=== PATIENT | male | born 1985 | race Two or more races ===

== ENCOUNTER 2017-06-25 11:07 | Emergency (ER) | payer OTHER ==
[2017-06-25 11:14] VITALS: RESP 20
--- NOTE | 2017-06-25 11:39 | ED ---
General Adult HPI - General Chief complaint: Back Pain/Injury Stated complaint: Back pain Time Seen by Provider: 06/25/17 11:28 Source: patient, RN notes reviewed Mode of arrival: ambulatory Limitations: no limitations - History of Present Illness Initial comments: Patient 31-year-old male presented to the emergency room today with chief complaint of a bump that he noticed 2 his mid back. He doesn't that he had a fall from roof back at the end of March 2017. States he had surgery on his neck and also his back. He states this was done at [facility]. He states he currently moved to the area and does not have a ride down to [facility]. Woke up today felt some increased pain and stiffness to the back. States that he noticed a bump left side of the mid spine. States he talked to the spinal specialist and was advised to come to the emergency room to have it checked. Patient denies any other complaints or symptoms. Patient denies any recent fever, chills, shortness of breath, chest pain, abdominal pain, nausea or vomiting, constipation or diarrhea, headaches or visual changes, or any other complaints. - Related Data Home Medications Medication Instructions Recorded Confirmed DULoxetine HCL [Cymbalta] 60 mg PO DAILY 06/25/17 06/25/17 Gabapentin 800 mg PO TID 06/25/17 06/25/17 Methocarbamol [Robaxin-750] 750 mg PO Q6H 06/25/17 06/25/17 Sennosides/Docusate Sodium [Dok 1 tab PO BID PRN 06/25/17 06/25/17 Plus Tablet] oxyCODONE-APAP 10-325MG [Percocet 1 - 2 tab PO Q4H PRN 06/25/17 06/25/17 10-325 mg] Allergies Allergy/AdvReac Type Severity Reaction Status Date / Time amoxicillin Allergy Unknown Verified 06/25/17 11:31 NSAIDS (Non-Steroidal Allergy Unknown Verified 06/25/17 11:31 Anti-Inflamma SUSHI Allergy Swelling Uncoded 06/25/17 11:31 Review of Systems ROS Statement: Those systems with pertinent positive or pertinent negative responses have been documented in the HPI. ROS Other: All systems not noted in ROS Statement are negative. Past Medical History Additional Past Medical History / Comment(s): back and neck injury History of Any Multi-Drug Resistant Organisms: None Reported Past Surgical History: Back Surgery Additional Past Surgical History / Comment(s): neck surgery Past Psychological History: No Psychological Hx Reported Smoking Status: Current every day smoker Past Alcohol Use History: None Reported Past Drug Use History: None Reported General Exam - General Exam Comments Initial Comments: General: The patient is awake and alert, in no distress, and does not appear acutely ill. Eye: Pupils are equal, round and reactive to light, extra-ocular movements are intact. No nystagmus. There is normal conjunctiva bilaterally. No signs of icterus. Ears, nose, mouth and throat: There are moist mucous membranes and no oral lesions. Neck: The neck is supple, there is no tenderness or JVD. Cardiovascular: There is a regular rate and rhythm. No murmur, rub or gallop is appreciated. Respiratory: Lungs are clear to auscultation, respirations are non-labored, breath sounds are equal. No wheezes, stridor, rales, or rhonchi. Musculoskeletal: Patient does have 2 surgical incisions midthoracic spine to both left and right side. Just below the left surgical incision there is a area that is raised. There is a feels muscular. It is not red. Some appear to have any increased tenderness. No drainage or discharge. Strength 5/5. Sensation intact. Pulses equal bilaterally 2+. Neurological: A&O x 3. CN II-XII intact, There are no obvious motor or sensory deficits. Coordination appears grossly intact. Speech is normal. Skin: Skin is warm and dry and no rashes or lesions are noted. Psychiatric: Cooperative, appropriate mood & affect, normal judgment. Limitations: no limitations Course Vital Signs 06/25/17 11:11 Temperature 98.1 F Pulse Rate 95 Respiratory 20 Rate Blood Pressure 132/89 O2 Sat by Pulse 98 Oximetry Medical Decision Making - Medical Decision Making Case discussed in detail with attending physician Dr. Chavira. Patient's x-rays have been reviewed shows no acute abnormality. Shows stable hardware. Patient vitals are stable. No fever. Patient does have no signs of infection. No redness. No increased tenderness to this area to the left side of his back. Patient is advised to follow-up with his surgeon. Advised to return if there is any fever, increase or worsening symptoms. Disposition Clinical Impression: Back pain Disposition: HOME SELF-CARE Additional Instructions: Please follow-up with surgeon in the next 2 days. Please return to emergency room if the symptoms increase or worsen or for any other concerns. Referrals: None,Stated [Primary Care Provider] - 1-2 days Time of Disposition: 12:20
--- NOTE | 2017-06-25 12:24 | XR ---
EXAMINATION TYPE: XR thoracic spine complete DATE OF EXAM: 06/25/2017 COMPARISON: NONE HISTORY: 31-year-old male with upper back pain and swelling at surgical site. C-spine surgery in and thoracic spine surgery in April after fall. TECHNIQUE: 4 views FINDINGS: No priors are available for comparison purposes. C3-C6 ACDF. There is T9-T10 posterior fusion change. There may be minimal vertebral body height loss at T9. Corre late as to the reason for patient's surgery. Alignment is maintained. The remaining vertebral body heights are preserved. IMPRESSION: 1. No priors available for comparison purposes. 2. C3-C6 ACDF hardware appears intact. 3. T9-T10 posterior thoracic fusion hardware. There may be minimal height loss of the T9 vertebral rodney dy. Correlate as to the reason for patient's thoracic fusion. 4. No malalignment.
[2017-06-25 12:48] VITALS: BP 130/82; PULSE 85; TEMP 98.2
== END 2017-06-25 12:40 | disposition home or self-care (01) ==
LOC: EC 11:07
DX: M54.9 Dorsalgia, unspecified (principal); F17.200 Nicotine dependence, unspecified, uncomplicated; Z79.899 Other long term (current) drug therapy; Z88.0 Allergy status to penicillin; Z88.6 Allergy status to analgesic agent; Z91.018 Allergy to other foods
CPT/HCPCS: 72072; 99283

== ENCOUNTER 2017-09-24 13:04 | Emergency (ER) | payer OTHER ==
[2017-09-24 13:16] VITALS: RESP 18
[2017-09-24] MEDS ORDERED: HYDROcodone/APAP 5-325MG 1 EACH TAB PO STA (13:53)
--- NOTE | 2017-09-24 14:50 | XR ---
EXAMINATION TYPE: XR lumbar spine 2 or 3V DATE OF EXAM: 09/24/2017 CLINICAL HISTORY: Fall and back pain TECHNIQUE: Frontal and lateral images of the lumbar spine are obtained. COMPARISON: None FINDINGS: There are 5 lumbar type vertebral bodies identified. The lumbar spine shows satisfactory alignment without evidence of acute fracture or dislocation. Vertebral body heights and disk space he ights are within normal limits. Surgical fusion of the thoracic spine is partially visualized. The o verlying soft tissue appears unremarkable. Minimal degenerative disc disease is seen at L5-S1 with fa cet arthropathy. IMPRESSION: No acute fracture or or malalignment is seen in the lumbar spine.
--- NOTE | 2017-09-24 14:54 | XR ---
Thoracic spine HISTORY: Trauma and pain 3 views of the thoracic spine correlated to prior exam 06/25/2017 There is no interval change. Postop changes again noted in the lower thoracic spine status post poste rior fusion T9-T10, cervical spine status post anterior cervical fusion and discectomy C3-C6. There m ay be a spinal curvature. Thoracic vertebral bodies show stable height, alignment, and bone mineraliz ation. Disc spaces are stable. IMPRESSION: Postop changes. There may be a mild spinal curvature. No acute fracture or subluxation.
--- NOTE | 2017-09-24 14:54 | ED ---
General Adult HPI - General Chief complaint: Back Pain/Injury Stated complaint: BACK PAIN FROM FALL, Hx Sx Time Seen by Provider: 09/24/17 13:38 Source: patient, RN notes reviewed Mode of arrival: ambulatory Limitations: no limitations - History of Present Illness Initial comments: 32-year-old male presents to the emergency department for a chief complaint of back pain 3 days. Patient states he slid down the stairs a few days ago and has been in pain since. Patient had surgery on his back about 7 months ago. He had fractures in the thoracic and cervical spine at that time. Patient has no feeling in bilateral lower extremities and has mild difficulty walking since the surgery. This has been consistent since the surgery. Patient denies any changes in bladder or bowel changes since the surgery and straight caths at home , which has been consistent. Patient denies IVDA. Patient did not hit his head. Patient has been taking Neurontin and Robaxin at home for pain. Patient is ALLERGIC to NSAIDs. Patient has no other complaints at this time including shortness of breath, chest pain, abdominal pain, nausea or vomiting, headache, or visual changes. - Related Data Home Medications Medication Instructions Recorded Confirmed DULoxetine HCL [Cymbalta] 60 mg PO DAILY 06/25/17 06/25/17 Gabapentin 800 mg PO TID 06/25/17 06/25/17 Methocarbamol [Robaxin-750] 750 mg PO Q6H 06/25/17 06/25/17 Sennosides/Docusate Sodium [Dok 1 tab PO BID PRN 06/25/17 06/25/17 Plus Tablet] oxyCODONE-APAP 10-325MG [Percocet 1 - 2 tab PO Q4H PRN 06/25/17 06/25/17 10-325 mg] Allergies Allergy/AdvReac Type Severity Reaction Status Date / Time amoxicillin Allergy Unknown Verified 09/24/17 13:16 NSAIDS (Non-Steroidal Allergy Unknown Verified 09/24/17 13:16 Anti-Inflamma SUSHI Allergy Swelling Uncoded 09/24/17 13:16 Review of Systems ROS Statement: Those systems with pertinent positive or pertinent negative responses have been documented in the HPI. ROS Other: All systems not noted in ROS Statement are negative. Past Medical History Past Medical History: No Reported History Additional Past Medical History / Comment(s): back and neck injury History of Any Multi-Drug Resistant Organisms: None Reported Past Surgical History: Back Surgery Additional Past Surgical History / Comment(s): neck surgery Past Psychological History: Bipolar Smoking Status: Current every day smoker Past Alcohol Use History: None Reported Past Drug Use History: None Reported General Exam Limitations: no limitations General appearance: alert, in no apparent distress Head exam: Present: atraumatic, normocephalic, normal inspection Eye exam: Present: normal appearance, PERRL, EOMI. Absent: scleral icterus, conjunctival injection, periorbital swelling ENT exam: Present: normal exam, normal oropharynx, mucous membranes moist, TM's normal bilaterally, normal external ear exam Neck exam: Present: normal inspection, full ROM. Absent: tenderness, meningismus, lymphadenopathy Respiratory exam: Present: normal lung sounds bilaterally. Absent: respiratory distress, wheezes, rales, rhonchi, stridor Cardiovascular Exam: Present: regular rate, normal rhythm, normal heart sounds. Absent: systolic murmur, diastolic murmur, rubs, gallop, clicks Extremities exam: Present: normal capillary refill (cap refill < 2 seconds and pedal pulse 2+) Back exam: Present: paraspinal tenderness (Mild thoracic paraspinal tenderness) , vertebral tenderness (Thoracic and lumbar spine tenderness. No cervical spine tenderness.). Absent: full ROM (Patient has about 30 flexion of the low back. 10 extension. Patient is able to twist.), CVA tenderness (R), CVA tenderness (L) Neurological exam: Present: alert, oriented X3, CN II-XII intact, normal gait. Absent: motor sensory deficit Course Vital Signs 09/24/17 13:13 Temperature 98.8 F Pulse Rate 113 H Respiratory 18 Rate Blood Pressure 120/84 O2 Sat by Pulse 97 Oximetry Medical Decision Making - Medical Decision Making 32-year-old male presents to the emergency department for a chief complaint of back pain 3 days. Patient fell on the stairs when his legs gave out and slid. Patient had cervical and thoracic spine surgery about 7 months ago after he broke his back from falling from a roof. Patient denies bladder or bowel changes. Patient denies saddle anesthesia. Patient does not have feeling in his lower extremities bilaterally which is consistent since his surgery. No changes in sensation since the fall. Patient visualized walking. Patient does have some limited range of motion of the lumbar back as well as tenderness to the thoracic and lumbar spine. X-ray of the thoracic spine shows post operative changes. No acute fracture or subluxation. X-ray of the lumbar spine shows no acute fracture or malalignment. Patient can follow up for this outpatient. He will be given the number to orthopedic surgeon as well as primary care. He will return to the emergency determine if he has any worsening symptoms. He can add Tylenol to his pain regimen of Neurontin and Robaxin. Disposition Clinical Impression: Back pain Disposition: HOME SELF-CARE Condition: Good Instructions: Acute Low Back Pain (ED) Additional Instructions: Please follow-up with either primary care provider or orthopedic surgeon in one to 2 days. Take Tylenol for pain. Return to the emergency department if you have any worsening symptoms. Is patient prescribed a controlled substance at d/c from ED?: No Referrals: Elmer Li DO [Doctor of Osteopathic Medicine] - 1-2 days Kirk Clements MD [STAFF PHYSICIAN] - 1-2 days Time of Disposition: 15:17
[2017-09-24 15:43] VITALS: BP 108/73; PULSE 87; TEMP 98.3
== END 2017-09-24 15:35 | disposition home or self-care (01) ==
LOC: EC 13:04
DX: M54.9 Dorsalgia, unspecified (principal); F31.9 Bipolar disorder, unspecified; F17.200 Nicotine dependence, unspecified, uncomplicated; Z79.899 Other long term (current) drug therapy; Z88.0 Allergy status to penicillin; Z88.6 Allergy status to analgesic agent; Z91.018 Allergy to other foods; X50.1XXA Overexertion from prolonged static or awkward postures, initial encounter
CPT/HCPCS: 72072; 72100; 99283

== ENCOUNTER 2017-09-26 20:10 | Inpatient (IN) | payer MEDICAID, OTHER ==
--- NOTE | 2017-09-26 20:58 | ED ---
General Adult HPI - General Chief complaint: Psychiatric Symptoms Stated complaint: Mental Health Time Seen by Provider: 09/26/17 20:33 Source: patient, RN notes reviewed, old records reviewed Mode of arrival: ambulatory Limitations: no limitations - History of Present Illness Initial comments: Chief complaint history of present illness is a 30-year-old male here with a friend. The patient reports that he is been depressed and suicidal. He reports that he was sick about shooting himself yesterday. [facility] is no longer available to him. It said someone else's home will not let him back there. Patient also reports that he fell while doing a galina job on April 11 of this year. Resulting in significant injuries that necessitated fusion of her cervical spine and thoracic spine. The patient has been on pain medications. He states that more recently got back into the wrong crowd"" and has been doing methamphetamine. States his last admit the last 5 hours. - Related Data Home Medications Medication Instructions Recorded Confirmed DULoxetine HCL [Cymbalta] 60 mg PO DAILY 06/25/17 06/25/17 Gabapentin 800 mg PO TID 06/25/17 06/25/17 Methocarbamol [Robaxin-750] 750 mg PO Q6H 06/25/17 06/25/17 Sennosides/Docusate Sodium [Dok 1 tab PO BID PRN 06/25/17 06/25/17 Plus Tablet] oxyCODONE-APAP 10-325MG [Percocet 1 - 2 tab PO Q4H PRN 06/25/17 06/25/17 10-325 mg] Allergies Allergy/AdvReac Type Severity Reaction Status Date / Time amoxicillin Allergy Unknown Verified 09/26/17 20:31 NSAIDS (Non-Steroidal Allergy Unknown Verified 09/26/17 20:31 Anti-Inflamma SUSHI Allergy Swelling Uncoded 09/26/17 20:31 Review of Systems ROS Statement: Those systems with pertinent positive or pertinent negative responses have been documented in the HPI. Review of systems. No headache or visual acuity changes. Chronic neck and back pain. On on pain medications. Also self-medicating with illegal drugs nightly methamphetamine. Patient reports he has had some deficits necessitating self-catheterization occasionally some difficulty with loss control of bowel. He is seeing a chronic pain management doctor. Patient reports that he is depressed and suicidal his plan would be to shoot himself. Past medical problems significant for depression. He was admitted [facility] several years ago. 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 And then on April 11 of this year he fell off a roof causing significant injuries. Family history significant for depression and suicide. Patient has ALLERGIES to amoxicillin, nonsteroidal anti -inflammatories and sushi. He drinks alcohol socially and smokes. Also admits to methamphetamine use. ROS Other: All systems not noted in ROS Statement are negative. Past Medical History Past Medical History: No Reported History Additional Past Medical History / Comment(s): back and neck injury History of Any Multi-Drug Resistant Organisms: None Reported Past Surgical History: Back Surgery Additional Past Surgical History / Comment(s): neck surgery Past Psychological History: Bipolar Smoking Status: Current every day smoker Past Alcohol Use History: None Reported Past Drug Use History: None Reported General Exam - General Exam Comments Initial Comments: General: The patient is awake and alert, here because she is depressed, suicidal. His plan would be to shoot himself. Vital signs temperature 98.8 pulse 127 story rate 18 pulse ox 97% room air blood pressure 132/76 Eye: Pupils are equal, round and reactive to light, extra-ocular movements are intact ; there is normal conjunctiva bilaterally. No signs of icterus. Ears, nose, mouth and throat: There are moist mucous membranes and no oral lesions. Neck: The neck is supple, there is no tenderness, evidence of surgery on the anterior neck. He states he has cervical fusion for cervical fractures. Cardiovascular: There is a regular rate and rhythm. No murmur, rub or gallop is appreciated. Respiratory: Lungs are clear to auscultation, respirations are non-labored, breath sounds are equal. No wheezes, stridor, rales, or rhonchi. Gastrointestinal: Soft, non-distended, non-tender abdomen without masses or organomegaly noted. Back: Chronic back pain. There is evidence of surgery in the mid thoracic spine. Musculoskeletal: Normal ROM, no tenderness, There is no pedal edema. There is no calf tenderness or swelling. Neurological: Patient states she's had neuro deficits secondary to his fall and postsurgical period. He needs to self catheterize every so often. He does report that occasionally has bowel movements he can't control. States he is able to squeeze his gluteal muscles control urine today. Skin: Skin is warm and dry and no rashes or lesions are noted. Psychiatric: Cooperative, flat affect, depressed, suicidal, plan to shoot himself. Limitations: no limitations Course Vital Signs 09/26/17 20:28 Temperature 98.8 F Pulse Rate 127 H Respiratory 18 Rate Blood Pressure 132/76 O2 Sat by Pulse 97 Oximetry Medical Decision Making - Medical Decision Making The patient's drug triage was positive for methamphetamine only. Negative for acetaminophen or aspirin. Medical decision making; this is a 13-year-old male here with complaint of depression thinking about shooting himself. The patient was evaluated by psychiatric nurse. The patient is signed in voluntarily to [facility] for further evaluation and management of depression. - Lab Data Lab Results 09/26/17 09/26/17 Range/Units 20:55 21:04 Salicylates <1.0 mg/dL Urine Opiates Screen Not Detected (NotDetected) Ur Oxycodone Screen Not Detected (NotDetected) Urine Methadone Screen Not Detected (NotDetected) Ur Propoxyphene Screen Not Detected (NotDetected) Acetaminophen <10.0 ug/mL Ur Barbiturates Screen Not Detected (NotDetected) U Tricyclic Antidepress Not Detected (NotDetected) Ur Phencyclidine Scrn Not Detected (NotDetected) Ur Amphetamines Screen Not Detected (NotDetected) U Methamphetamines Scrn Detected H (NotDetected) U Benzodiazepines Scrn Not Detected (NotDetected) Urine Cocaine Screen Not Detected (NotDetected) U Marijuana (THC) Screen Not Detected (NotDetected) Disposition Clinical Impression: Suicidal ideation, Depression Disposition: TRANSFER TO PSYCH HOSP/UNIT Condition: Serious Is patient prescribed a controlled substance at d/c from ED?: No
[2017-09-26 21:35] LABS: Acetaminophen <10.0 ug/mL; Salicylate <1.0 mg/dL
[2017-09-26 21:43] LABS: Amphetamine Screen,Urine Not Detected (NotDetected); Barbiturate Screen,Urine Not Detected (NotDetected); Benzodiazepines Screen,Urine Not Detected (NotDetected); Cocaine Screen,Urine Not Detected (NotDetected); Methadone Screen, Urine Not Detected (NotDetected); Opiate Screen,Urine Not Detected (NotDetected); Oxycodone Screen, Urine Not Detected (NotDetected); Phencyclidine Screen,Urine Not Detected (NotDetected); Tricyclic Antidepressant,Urine Not Detected (NotDetected); Urn Cannabinoid Scrn Not Detected (NotDetected)
[2017-09-26] MEDS ORDERED: MAGNESIUM HYDROXIDE 2,400 MG/10 ML CUP PO PRN (22:42)
[2017-09-26] MEDS ORDERED: ZIPRASIDONE 20 MG VIAL IM PRN (22:42)
[2017-09-26] MEDS ORDERED: MAG HYDROX/AL HYDROX/SIMETH 30 ML CUP PO PRN (22:42)
[2017-09-26] MEDS ORDERED: LORazepam 2 MG/ML INJ IM PRN (22:54)
[2017-09-27 00:01] VITALS: BMI 20.9
[2017-09-27] MEDS: GABAPENTIN 400 MG CAP PO SCH ×4 (00:32→20:42)
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
[2017-09-27 09:12] LABS: Basophils % (A) 1 %; Eosinophils # (A) 0.1 k/uL (0-0.7); Eosinophils % (A) 2 %; HCT 43.3 % (39.0-53.0); HGB 14.3 gm/dL (13.0-17.5); Lymphocytes % (A) 32 %; MCHC 33.1 g/dL (31.0-37.0); MCV 87.4 fL (80.0-100.0); Mean Platelet Volume 6.7; Monocytes # (A) 0.4 k/uL (0-1.0); Monocytes % (A) 6 %; Neutrophils # (A) 3.6 k/uL (1.3-7.7); Neutrophils % (A) 58 %; Platelet Count 275 k/uL (150-450); RBC 4.95 m/uL (4.30-5.90); RDW 15.1 % (11.5-15.5); WBC 6.3 k/uL (3.8-10.6)
[2017-09-27 09:23] LABS: ALT 22 U/L (21-72); AST 17 U/L (17-59); Albumin 3.9 g/dL (3.5-5.0); Alkaline Phosphatase 54 U/L (38-126); Anion Gap 8 mmol/L; Bilirubin, Delta 0.1 mg/dL (0.0-0.2); Bilirubin,Unconjugated 0.5 mg/dL (0.0-1.1); Blood Urea Nitrogen 12 mg/dL (9-20); Calcium 9.8 mg/dL (8.4-10.2); Carbon Dioxide 25 mmol/L (22-30); Chloride 108 mmol/L (98-107); Cholesterol 247 mg/dL (<200); Glucose 87 mg/dL (74-99); HDL Cholesterol 52 mg/dL (40-60); LDL Cholesterol,Calculated 176 mg/dL (0-99); Potassium 4.4 mmol/L (3.5-5.1); Sodium 141 mmol/L (137-145); Total Bilirubin 0.6 mg/dL (0.2-1.3); Total Protein 6.1 g/dL (6.3-8.2); Triglycerides 93 mg/dL (<150)
[2017-09-27] MEDS: HEPARIN SODIUM,PORCINE 5,000 UNIT/ML 1 ML VIAL SQ SCH ×3 (09:38→21:23)
[2017-09-27] MEDS: NICOTINE 21MG/24HR PATCH TRANSDERM SCH (09:38)
[2017-09-27] MEDS: LORazepam 1 MG TAB PO PRN ×2 (09:54→18:50)
[2017-09-27 12:52] LABS: Amorphous Sediment,Urine Moderate /hpf; Appearance,Urine Cloudy (Clear); Bilirubin,Urine Negative (Negative); Blood,Urine Negative (Negative); Color,Urine Light Yellow; Glucose,Urine (UA) Negative (Negative); Ketones,Urine Negative (Negative); Leukocyte Esterase,Urine Negative (Negative); Mucus,Urine Rare /hpf; Nitrite,Urine Negative (Negative); PH, Urine 8.5 (5.0-8.0); Protein,Urine Negative (Negative); RBC,Urine 2 /hpf (0-5); Specific Gravity,Urine 1.009 (1.001-1.035); Squamous Epithelial Cell,Urine <1 /hpf (0-4); Urobilinogen,Urine <2.0 mg/dL (<2.0)
[2017-09-27] MEDS: ACETAMINOPHEN TAB 325 MG TAB PO PRN (15:30)
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
[2017-09-27] MEDS ORDERED: buPROPion XL 150 MG TAB.ER.24H PO SCH (16:00)
[2017-09-27] MEDS: DULoxetine HCL 30 MG CAPSULE.DR PO SCH (16:40)
[2017-09-27] MEDS: ZIPRASIDONE 40 MG CAP PO SCH (20:42)
--- NOTE | 2017-09-28 09:55 | P.PN ---
Progress Note - Text Interval history: The patient is found in his room he follows me to an interview room. He is currently on one-to-one supervision apparently for suicidal ideation. The patient was admitted with suicidal ideation and thoughts of aggressiveness. He reports feeling very tired as he feels he is coming down from recent frequent use of methamphetamine. He feels agitated. He states he has been avoiding groups. He did not eat breakfast this morning. He describes ongoing chronic pain related to an injury where he fell off of a roof earlier this year. He states he suffered fractures in his neck and back and required fusions. The patient was seen by Dr. Palacio and he was started on Cymbalta and Geodon. The patient states he's previously been on Cymbalta but is unsure what the result was. He has no questions or concerns regarding his medications at this time. Mental status exam: The patient is a thin male appearing his stated age. His hair is shaved short eye contact is intermittent. He is vu he has numerous tattoos visible on his extremities including his hands. He walks very slowly indicating he has chronic back pain. He reports a depressed mood with agitation. He reports feeling tired. He reports recent suicidal ideation with a plan of shooting himself. He endorses no specific homicidal ideation. He endorses no specific delusions he endorses no hallucinations. There is no observed evidence of psychosis. Thought process is linear. He demonstrates no tangential thinking loose associations or flight of ideas. Insight and judgment limited. Plan: The patient will continue on the Cymbalta and Geodon as ordered. We will consider titrating these further as he adjusts to the medication. He is encouraged to participate in the milieu. We will discontinue the one-to-one supervision as it seems unnecessary at this time. He states he is able to keep himself safe here on the mental health unit. There have been no reports of him demonstrating any type of suicidal gestures on the mental health unit. We will continue to monitor him with general suicide precautions. Vital signs reviewed.
[2017-09-28] MEDS: NICOTINE 21MG/24HR PATCH TRANSDERM SCH (10:02)
[2017-09-28] MEDS: GABAPENTIN 400 MG CAP PO SCH ×3 (10:02→21:01)
[2017-09-28] MEDS: DULoxetine HCL 30 MG CAPSULE.DR PO SCH (10:03)
[2017-09-28] MEDS: ZIPRASIDONE 40 MG CAP PO SCH ×2 (10:03→21:01)
[2017-09-28] MEDS: HEPARIN SODIUM,PORCINE 5,000 UNIT/ML 1 ML VIAL SQ SCH ×2 (10:03→16:16)
[2017-09-28 11:54] LABS: Hemoglobin A1C 5.6 % (4.0-6.0)
[2017-09-28] MEDS: ACETAMINOPHEN TAB 325 MG TAB PO PRN ×3 (12:29→21:02)
[2017-09-28] MEDS: LORazepam 1 MG TAB PO PRN ×2 (12:29→18:55)
[2017-09-28] MEDS: PRAVASTATIN SODIUM 20 MG TAB PO SCH (21:00)
[2017-09-29] MEDS: HEPARIN SODIUM,PORCINE 5,000 UNIT/ML 1 ML VIAL SQ SCH ×4 (00:13→22:59)
[2017-09-29] MEDS: GABAPENTIN 400 MG CAP PO SCH ×3 (08:21→21:00)
[2017-09-29] MEDS: ZIPRASIDONE 40 MG CAP PO SCH ×2 (08:21→21:00)
[2017-09-29] MEDS: DULoxetine HCL 30 MG CAPSULE.DR PO SCH (08:21)
[2017-09-29] MEDS: LORazepam 1 MG TAB PO PRN ×2 (08:22→16:55)
[2017-09-29] MEDS: NICOTINE 21MG/24HR PATCH TRANSDERM SCH (08:22)
--- NOTE | 2017-09-29 10:19 | P.PN ---
Progress Note - Text Interval history: The patient is found in his room he follows me to an interview room. He reports his mood is still depressed anxious and he feels irritable. He reports continued suicidal ideation. He has felt agitated by some of his peers. He has no questions or concerns regarding his medication. I was able to review a medication review no from his nurse practitioner at [facility] from June 2016. At that time he was on Cymbalta 90 mg daily and indicates he felt the medication helped his depression and irritability. The patient reports that he has been eating. He minimally participates in the milieu. Mental status exam: The patient is a thin male appearing his stated age. He seated calmly in the chair. He rises from a seated position slowly and ambulates slowly. He describes a depressed mood with anxiety and irritability. Affect is blunted. He is reporting ongoing suicidal thoughts with no homicidal ideation. He is endorsing no auditory or visual hallucinations or any specific delusions. He demonstrates no verbal or physical aggressiveness. Insight and judgment limited. He remains oriented to person place and date. He demonstrates no tangential thinking loose associations or flight of ideas. Plan: The patient will continue on his current psychotropic medication. We will likely titrate the Cymbalta further tomorrow. He is encouraged to participate more in the milieu. Vital signs reviewed. We will continue to monitor him for safety.
[2017-09-29] MEDS: ACETAMINOPHEN TAB 325 MG TAB PO PRN ×2 (13:32→17:43)
[2017-09-29 18:47] VITALS: RESP 16
[2017-09-29] MEDS: PRAVASTATIN SODIUM 20 MG TAB PO SCH (20:59)
[2017-09-30] MEDS: HEPARIN SODIUM,PORCINE 5,000 UNIT/ML 1 ML VIAL SQ SCH ×3 (08:28→22:07)
[2017-09-30] MEDS: ZIPRASIDONE 40 MG CAP PO SCH ×2 (08:29→22:06)
[2017-09-30] MEDS: NICOTINE 21MG/24HR PATCH TRANSDERM SCH (08:29)
[2017-09-30] MEDS: DULoxetine HCL 30 MG CAPSULE.DR PO SCH (08:29)
[2017-09-30] MEDS: LORazepam 1 MG TAB PO PRN ×2 (08:29→16:42)
[2017-09-30] MEDS: GABAPENTIN 400 MG CAP PO SCH ×3 (08:29→22:06)
[2017-09-30] MEDS ORDERED: DULoxetine HCL 30 MG CAPSULE.DR PO ONE (09:49)
--- NOTE | 2017-09-30 09:53 | P.PN ---
Progress Note - Text Interval history: The patient is found in his room he follows me to an interview room. He has a placement date for [facility] for tomorrow. He is pleased with that and states his mood is improved. He feels that he is safe to attend inpatient chemical dependency treatment in terms of suicidal thoughts. He states that he is eating. He has not been attending groups other than maybe once per day. He has no questions or concerns regarding his medication. We discussed titrating the Cymbalta further. Mental status exam: The patient is a thin male appearing his stated age. He has several visible tattoos. Eye contact is appropriate speech is fluent spontaneous nonpressured. He maintains a constricted affect. He reports some improvement of his mood and denies having any suicidal or homicidal ideation intent or plan. He endorses no auditory or visual hallucinations or any specific delusions. There is no observed evidence of psychosis. Insight and judgment improving. He does not demonstrate any tangential thinking loose associations or flight of ideas. Plan: The patient will continue on the Geodon 40 mg twice daily we will increase the Cymbalta to 60 mg daily. We will plan to discharge him tomorrow to inpatient chemical dependency treatment at [facility]. He is encouraged to attend groups more often. We will continue to monitor him for safety.
[2017-09-30] MEDS: ACETAMINOPHEN TAB 325 MG TAB PO PRN ×2 (12:01→22:05)
--- NOTE | 2017-09-30 13:16 | P.DS ---
Providers Date of admission: 09/26/17 22:38 Expected date of discharge: 10/01/17 Attending physician: Patel Stone Consults: 09/26/17 22:42 Consult Physician Routine Consulting Provider: Kimberly Ward Consult Reason/Comments: H & P and medical care Do you want consulting provider notified?: Yes Primary care physician: Stated None - Discharge Diagnosis(es) (1) Bipolar depression Current Visit: Yes Status: Acute Priority: High (2) Methamphetamine use disorder, moderate Current Visit: Yes Status: Acute Priority: High (3) Opioid use disorder Current Visit: Yes Status: Acute Priority: Medium Hospital Course: Brief Summary of Admission Note: This patient is a 32-year-old male who was admitted to the mental health unit through the emergency room with suicidal ideation and other mood symptoms. The patient reported he had felt agitated and felt physically aggressive. He was seen by Dr. Palacio and the psychiatric evaluation was completed on 09/27/2017 please refer to that evaluation for full detail. The patient states that a significant stressor is his ongoing pain as he reportedly fell off of a roof and suffered 2 fractures of his back. Summary of hospital course: The patient was admitted to the mental health unit voluntarily. He was initially seen by Dr. Palacio. Geodon 40 mg twice daily was initiated as a mood stabilizer and the patient was placed back on Cymbalta 30 mg daily. I see him care of the patient beginning Thursday. I was able to review a progress note from his outpatient clinician. The patient had been successfully treated with Cymbalta in the past. The patient reported no side effects from his Cymbalta or Geodon. He reported progressive improvement of symptoms while my hospital. We discussed the need for inpatient chemical dependency treatment and the patient was agreeable. He placed a call to the access line and he was subsequently approved to attend [facility] tomorrow. The patient demonstrated no agitated behavior under my care on the mental health unit he was cooperative with medications and was able to complete his activities of daily living. He was seen by internal medicine for routine history and physical exam. Mental status exam: Please refer to mental status exam to be dictated tomorrow by covering psychiatrist Impressions 1. Bipolar disorder unspecified, most recent depressed, history of opiate use disorder, methamphetamine use disorder 2. Chronic pain secondary to back injury and subsequent physical limitations Plan: The patient will be discharged mental health unit tomorrow on 10/01/2017. He will be going to [place] tomorrow morning for inpatient chemical dependency treatment. He will continue on Cymbalta 60 mg daily and Geodon 40 mg twice daily with food. He is instructed to abstain from all use of alcohol or any illicit drug as it would elevate his safety risk. There is no imminent safety risk is appropriate for transfer to inpatient chemical dependency treatment tomorrow. He is instructed to return to the hospital if any acute safety concerns. Patient Condition at Discharge: Stable Plan - Discharge Summary Discharge Rx Participant: No New Discharge Prescriptions: New Nicotine 21Mg/24Hr Patch [Habitrol] 1 patch TRANSDERM DAILY #10 patch Pravastatin Sodium [Pravachol] 10 mg PO HS #30 tab Ziprasidone [Geodon] 40 mg PO BID #60 cap Continue DULoxetine HCL [Cymbalta] 60 mg PO DAILY #30 capsule. Gabapentin 800 mg PO TID #45 tablet Discontinued oxyCODONE-APAP 10-325MG [Percocet 10-325 mg] 1 - 2 tab PO Q4H PRN PRN Reason: Pain Sennosides/Docusate Sodium [Dok Plus Tablet] 1 tab PO BID PRN PRN Reason: Constipation Methocarbamol [Robaxin-750] 750 mg PO Q6H Discharge Medication List DULoxetine HCL [Cymbalta] 60 mg PO DAILY #30 capsule. 09/30/17 [Rx] Gabapentin 800 mg PO TID #45 tablet 09/30/17 [Rx] Nicotine 21Mg/24Hr Patch [Habitrol] 1 patch TRANSDERM DAILY #10 patch 09/30/17 [ Rx] Pravastatin Sodium [Pravachol] 10 mg PO HS #30 tab 09/30/17 [Rx] Ziprasidone [Geodon] 40 mg PO BID #60 cap 09/30/17 [Rx] Follow up Appointment(s)/Referral(s): [facility] [Outside] - 10/01/17 9:15 am (09/30/17 at 915 w/intake ) None,Stated [Primary Care Provider] - 1-2 days
[2017-09-30] MEDS: PRAVASTATIN SODIUM 20 MG TAB PO SCH (22:06)
[2017-10-01 06:43] VITALS: BP 101/60; PULSE 79; TEMP 97.7
--- NOTE | 2017-10-01 08:13 | P.PN ---
Progress Note - Text Progress Note Date: 10/01/17 Interval History: Patient is a 32-year-old male who is admitted with complaints of depression, suicidal ideation, agitation homicidal ideation and had been using methamphetamine. Patient is being seen today prior to his discharge and transfer to [place] for inpatient substance use rehab in coverage for Dr. Stone. Patient reports that he is no longer feeling suicidal or homicidal states he's feeling much less agitated and reports that he is sleeping and eating well. He states that he is ready to go to [place] this morning for inpatient substance abuse rehab. Patient reported that his depression is improving. Patient reported no side effect complaints from his medications Mental Status: Appearance/Attitude: Patient is casually dressed, makes good eye contact and was cooperative. Behavior: Patient did not exhibit any psychomotor agitation or retardation. Speech/Language: Patient's speech was spontaneous of normal volume and rhythm and he was coherent Thought Process: Patient is goal-directed there is no evidence of loose association or flight of ideas Thought Content: Patient denies any auditory or visual hallucinations no delusions or paranoid ideation were elicited. Patient states that his depression has slowly improved he is no longer feeling as agitated or as depressed as he was on admission. He denied feeling hopeless and helpless. Patient states that his sleep and appetite have improved as well. Suicidal/Homicidal Ideation: Patient denies any current suicidal or homicidal ideation Sensorium/Cognition: Patient is alert and oriented to person, place, and time and his recent and remote memory are grossly intact Mood/Affect: Patient's mood is slightly depressed and his affect is appropriate to his mood Insight/Judgment: Patient's insight and judgment are fair. Assessment: Patient states that his depression has slowly improved on the medication, he is not reporting any psychotic symptoms and denies any current suicidal or homicidal ideation. Patient states that he is to start at [place] inpatient substance use rehab today. Patient reports doing well on the Cymbalta and Geodon and reports no side effects. Patient had no complaints and states he was ready for discharge. Plan: Patient will be discharged today and has an intake appointment at [place] at 9:15 this morning. Patient will continue on Cymbalta 60 mg daily, Neurontin 800 mg 3 times a day, Pravachol 10 mg at bedtime and Geodon 40 mg twice a day and nicotine patch. Prescriptions will be given to the patient for these medications.
[2017-10-01] MEDS: ACETAMINOPHEN TAB 325 MG TAB PO PRN (08:22)
[2017-10-01] MEDS: NICOTINE 21MG/24HR PATCH TRANSDERM SCH (08:22)
[2017-10-01] MEDS: LORazepam 1 MG TAB PO PRN (08:23)
[2017-10-01] MEDS: GABAPENTIN 400 MG CAP PO SCH (08:23)
[2017-10-01] MEDS: ZIPRASIDONE 40 MG CAP PO SCH (08:23)
[2017-10-01] MEDS: HEPARIN SODIUM,PORCINE 5,000 UNIT/ML 1 ML VIAL SQ SCH (08:43)
[2017-10-01] MEDS ORDERED: DULoxetine HCL 60 MG CAPSULE.DR PO SCH (09:00)
[2017-10-01] MEDS ORDERED: DULoxetine HCL 30 MG CAPSULE.DR PO ONE (09:49)
== END 2017-10-01 08:43 | disposition home or self-care (01) | DRG 885 ==
LOC: EC 20:10 → 3MHU 22:38
PROVIDERS: ADMIT Psychiatry & Neurology Psychiatry; ATTEND Psychiatry & Neurology Psychiatry
DX: F31.9 Bipolar disorder, unspecified (principal); F15.20 Other stimulant dependence, uncomplicated; R45.851 Suicidal ideations; F11.10 Opioid abuse, uncomplicated; F17.200 Nicotine dependence, unspecified, uncomplicated; F90.9 Attention-deficit hyperactivity disorder, unspecified type; G89.29 Other chronic pain; W13.2XXS Fall from, out of or through roof, sequela; T14.8XXS Other injury of unspecified body region, sequela; M54.5 Low back pain; R53.1 Weakness; Z81.8 Family history of other mental and behavioral disorders; Z88.6 Allergy status to analgesic agent; Z88.0 Allergy status to penicillin; Z91.013 Allergy to seafood; Z79.899 Other long term (current) drug therapy; Z98.1 Arthrodesis status; R33.8 Other retention of urine; R15.9 Full incontinence of feces; Z82.49 Family history of ischemic heart disease and other diseases of the circulatory system; Z83.6 Family history of other diseases of the respiratory system; F45.42 Pain disorder with related psychological factors
CPT/HCPCS: 36415; 80053; 80061; 80156; 80306; 81001; 82075; 82248; 83036; 83520; 84443; 85025; 99285

== ENCOUNTER 2017-10-02 21:11 | Emergency (ER) | payer OTHER ==
--- NOTE | 2017-10-02 21:42 | ED ---
Back Pain HPI - General Chief Complaint: Back Pain/Injury Stated Complaint: Back pain Time Seen by Provider: 10/02/17 21:30 Source: patient, family, RN notes reviewed Limitations: no limitations - History of Present Illness Initial Comments: This a 32-year-old male presents emergency Department chief complaint of thoracic back pain. Patient has a history of fracture after falling off a roof. He states that it surgery March 2017. He states today he was leaning back into a chair and felt a pop. He states that it's increase in pain and states that he feels that something in. Patient reports no bowel bladder incontinence or retention. He states his pain he rates only down his leg. Patient denies any abdominal pain including nausea vomiting diarrhea constipation. Denies any fevers or chills. - Related Data Previous Rx's Medication Instructions Recorded DULoxetine HCL [Cymbalta] 60 mg PO DAILY #30 capsule. 09/30/17 Gabapentin 800 mg PO TID #45 tablet 09/30/17 Nicotine 21Mg/24Hr Patch [Habitrol] 1 patch TRANSDERM DAILY #10 patch 09/30/17 Pravastatin Sodium [Pravachol] 10 mg PO HS #30 tab 09/30/17 Ziprasidone [Geodon] 40 mg PO BID #60 cap 09/30/17 Cyclobenzaprine [Flexeril] 10 mg PO TID PRN #10 tab 10/02/17 Allergies Allergy/AdvReac Type Severity Reaction Status Date / Time amoxicillin Allergy Unknown Verified 10/02/17 21:21 NSAIDS (Non-Steroidal Allergy Unknown Verified 10/02/17 21:21 Anti-Inflamma SUSHI Allergy Swelling Uncoded 10/02/17 21:21 Review of Systems ROS Statement: Those systems with pertinent positive or pertinent negative responses have been documented in the HPI. ROS Other: All systems not noted in ROS Statement are negative. 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 History of Any Multi-Drug Resistant Organisms: None Reported Past Surgical History: Back Surgery Additional Past Surgical History / Comment(s): neck surgery, T10 through T12 fusion, C3 through C7 fusion (Mar, 2017) Past Anesthesia/Blood Transfusion Reactions: No Reported Reaction Past Psychological History: Bipolar, Depression Smoking Status: Current every day smoker Past Alcohol Use History: Rare Past Drug Use History: Methamphetamine - Past Family History Father Family Medical History: Coronary Artery Disease (CAD) Mother Family Medical History: COPD Son(s) Family Medical History: No Reported History General Exam Limitations: no limitations General appearance: alert, in no apparent distress Head exam: Present: atraumatic, normocephalic, normal inspection Neck exam: Present: normal inspection, full ROM. Absent: tenderness, meningismus, lymphadenopathy Respiratory exam: Present: normal lung sounds bilaterally. Absent: respiratory distress, wheezes, rales, rhonchi, stridor Cardiovascular Exam: Present: regular rate, normal rhythm, normal heart sounds. Absent: systolic murmur, diastolic murmur, rubs, gallop, clicks GI/Abdominal exam: Present: soft, normal bowel sounds. Absent: distended, tenderness, guarding, rebound, rigid Back exam: Present: normal inspection (Scarring noted thoracic region with this appears to be muscle spasm and slight curvature), tenderness (Moderate thoracic T 10-11), muscle spasm, paraspinal tenderness. Absent: full ROM, vertebral tenderness Skin exam: Present: warm, dry, intact, normal color. Absent: rash Course Vital Signs 10/02/17 21:17 Temperature 99.3 F Pulse Rate 103 H Respiratory 20 Rate Blood Pressure 129/86 O2 Sat by Pulse 96 Oximetry Medical Decision Making - Medical Decision Making 32-year-old male presented for back pain. There is no acute changes on x-ray from prior. Patient is advised follow-up with his surgeon as he had surgery in March. Patient will be given muscle relaxers. Return parameters discussed. Disposition Clinical Impression: Thoracic back pain, Muscle spasm Disposition: HOME SELF-CARE Condition: Stable Instructions: Back Pain (ED) Additional Instructions: Follow-up with your surgeon.Please return to the Emergency Department if symptoms worsen or any other concerns. Prescriptions: Cyclobenzaprine [Flexeril] 10 mg PO TID PRN #10 tab PRN Reason: Muscle Spasm Is patient prescribed a controlled substance at d/c from ED?: No Referrals: None,Stated [Primary Care Provider] - 1-2 days Time of Disposition: 22:45
--- NOTE | 2017-10-02 22:40 | XR ---
EXAMINATION TYPE: XR thoracic spine complete DATE OF EXAM: 10/02/2017 COMPARISON: 09/24/2017 HISTORY: Back pain TECHNIQUE: 3 views FINDINGS: The thoracic vertebra have normal spacing and alignment. There is posterior fusion surgery at T9-10. There is no thoracic paraspinal mass. Posterior elements are intact. I see no compression f racture. IMPRESSION: Posterior fusion surgery. No fracture seen. No change compared to old exam.
[2017-10-02] MEDS ORDERED: CYCLOBENZAPRINE 10 MG TAB PO STA (22:48)
[2017-10-02 23:08] VITALS: BP 122/84; PULSE 84; RESP 18; TEMP 97.4
== END 2017-10-02 23:07 | disposition home or self-care (01) ==
LOC: EC 21:11
DX: M62.830 Muscle spasm of back (principal); M54.6 Pain in thoracic spine; F17.200 Nicotine dependence, unspecified, uncomplicated; Z88.0 Allergy status to penicillin; Z88.6 Allergy status to analgesic agent; Z91.018 Allergy to other foods
CPT/HCPCS: 72072; 99283